=== PATIENT | male | born 1970 | race Caucasian/White ===

== ENCOUNTER 2021-01-07 16:13 | Inpatient (IN) | payer OTHER ==
[~2021-01-07] VITALS: Ht 188 cm; Wt 90.6 kg
[2021-01-07] MEDS ORDERED: GABA300 PO (16:36)
[2021-01-07] MEDS ORDERED: FOLI1 PO (16:37)
[2021-01-07] MEDS ORDERED: B-1100 M1 PO (16:37)
[2021-01-07] MEDS ORDERED: MULVITA PO (16:38)
[2021-01-07] MEDS ORDERED: MELATONIN5 M1 PO (16:39)
[2021-01-07] MEDS ORDERED: HYDPAM50 PO (16:40)
[2021-01-07] MEDS ORDERED: CLON1 PO (16:41)
[2021-01-07] MEDS ORDERED: METO25 PO (16:43)
[2021-01-07] MEDS ORDERED: PROM25 PO (16:43)
[2021-01-07] MEDS ORDERED: TRAZ50 PO (16:44)
[2021-01-07 18:39] LABS: BASOPHILS ABSOLUTE AUTO 0.03 K/mm3 (0.00-0.23); BASOPHILS PERCENT AUTO 1 % (0-2); EOSINOPHILS ABSOLUTE AUTO 0.05 K/mm3 (0.00-0.68); EOSINOPHILS PERCENT AUTO 1 % (0-6); Hemoglobin 10.5 g/dL (13.5-17.5); IMMATURE GRAN ABSOLUTE AUTO 0.01 K/mm3 (0.00-0.10); IMMATURE GRAN PERCENT AUTO 0 % (0-1); LYMPHOCYTES ABSOLUTE AUTO 1.17 K/mm3 (0.84-5.20); LYMPHOCYTES PERCENT AUTO 21 % (21-46); MONOCYTES ABSOLUTE AUTO 0.85 K/mm3 (0.16-1.47); MONOCYTES PERCENT AUTO 15 % (4-13); Mean Corpuscular HGB 29.9 pg (26.0-34.0); Mean Corpuscular HGB Conc 31.8 g/dL (31.5-36.5); Mean Corpuscular Volume 94 fL (80-100); Mean Platelet Volume 10.5 fL (9.1-12.4); NEUTROPHILS PERCENT AUTO 62 % (41-73); Platelet Count 186 K/mm3 (150-400); RDW Coefficient Variation 17.1 % (11.7-14.2); Red Blood Cell Count 3.51 M/mm3 (4.30-5.90); White Blood Cell Count 5.51 K/mm3 (4.00-11.30)
[2021-01-07 19:00] LABS: International Normalized Ratio 1.43; Prothrombin Time Results 14.7 Sec (9.7-11.5)
[2021-01-07 19:04] LABS: Alanine Aminotransfer (ALT/SGP 80 U/L (12-78); Albumin/Globulin Ratio 0.3 (0.8-1.8); Alk Phos 151 U/L (50-136); Anion Gap 4 mmol/L (6-16); Aspartate Aminotrans (AST/SGOT 125 U/L (12-37); Bilirubin, Total 1.8 mg/dL (0.1-1.0); Blood Urea Nitrogen 11 mg/dL (8-24); CO2, Blood 24 mmol/L (21-32); Calcium, Blood 8.9 mg/dL (8.5-10.1); Chloride, Blood 110 mmol/L (98-108); Creatinine, Blood 0.61 mg/dL (0.60-1.20); Ethanol (Alcohol), Blood, Med <3 mg/dL; Globulin, Blood 7.3 g/dL (2.2-4.0); Glomerular Filtration Rate >60 (60-); Glucose, Blood 100 mg/dL (70-99); Magnesium, Blood 1.6 mg/dL (1.6-2.4); Sodium, Blood 138 mmol/L (136-145); Total Protein, Blood 9.3 g/dL (6.4-8.2)
[2021-01-07 19:25] LABS: Acetaminophen, Random <2.0 ug/mL (10.0-30.0); Salicylate <1.7 mg/dL (2.8-20.0)
[2021-01-07] MEDS ORDERED: Inderal 20 mg T20 MG PO (20:46)
[2021-01-07 20:56] LABS: Influenza A, PCR NEGATIVE (NEGATIVE); Influenza B, PCR NEGATIVE (NEGATIVE); Resp Syncytial Virus, PCR NEGATIVE (NEGATIVE); SARS-Cov-2 (COVID-19) PCR, MMC NEGATIVE (NEGATIVE)
[2021-01-07 22:52] LABS: Source, Urine Clean Catch
[2021-01-07 22:57] LABS: Bilirubin, Urine Neg (Neg); Blood, Urine Neg (Neg); Glucose Qualitative, Urine Neg (Neg); Ketones, Urine Neg (Neg); Leukocyte Esterase, Urine Neg (Neg); Nitrite, Urine Neg (Neg); Protein, Urine Neg (Neg); Specific Gravity, Urine 1.015 (1.003-1.022); Urobilinogen, Urine NORM (Normal)
[2021-01-07 23:05] LABS: Appearance, Urine Clear (Clear); Color, Urine Yellow (P-Yellow)
[2021-01-07 23:08] LABS: U Amphetamine Screen DETECTED; U Barbituate Screen Not Detected; U Benzodiazapine Screen DETECTED; U Buprenorphine Screen Not Detected; U Cannabinoids Screen Not Detected; U Cocaine Screen Not Detected; U Methadone Screen Not Detected; U Methamphetamine Screen DETECTED; U Opiates Screen Not Detected; U Oxycodone Screen Not Detected; U Phencyclidine Screen Not Detected; U Propoxyphene Screen Not Detected
[2021-01-07 23:45] LABS: C DIFFICILE DNA POSITIVE (Negative)
--- NOTE | 2021-01-08 05:15 | NUR ---
PT TX UP FROM ED LAST NIGHT. ALERT TO SELF. ABLE TO MAKE NEEDS KNOWN. INCREASE IN AM TEMP SEEN IN VS. SINUS TACH ON TELE WITH HR 114. SPEECH IS MUMBLED AT TIMES INCOHERENT. PT IS IMPULSIVE. HAVE TO BE REMINDED TO USE CALL LIGHT. ON CONTACT PRECAUTION FOR C. DIFF. HE HAS HAD EPISODES OF BOTH CONTINENCE AND INCONTINENCE. CALM AND COOOPERATIVE WITH CARE. BED IN LOW POSITION, CALL LIGHT IN REACH. WILL CONTINUE TO MONITOR
[2021-01-08 05:52] LABS: BASOPHILS ABSOLUTE AUTO 0.02 K/mm3 (0.00-0.23); BASOPHILS PERCENT AUTO 0 % (0-2); EOSINOPHILS ABSOLUTE AUTO 0.05 K/mm3 (0.00-0.68); EOSINOPHILS PERCENT AUTO 1 % (0-6); Hematocrit 28.9 % (37.0-53.0); Hemoglobin 9.3 g/dL (13.5-17.5); IMMATURE GRAN ABSOLUTE AUTO 0.02 K/mm3 (0.00-0.10); IMMATURE GRAN PERCENT AUTO 0 % (0-1); LYMPHOCYTES ABSOLUTE AUTO 2.01 K/mm3 (0.84-5.20); LYMPHOCYTES PERCENT AUTO 28 % (21-46); MONOCYTES ABSOLUTE AUTO 1.07 K/mm3 (0.16-1.47); MONOCYTES PERCENT AUTO 15 % (4-13); Mean Corpuscular HGB 29.9 pg (26.0-34.0); Mean Corpuscular HGB Conc 32.2 g/dL (31.5-36.5); Mean Corpuscular Volume 93 fL (80-100); NEUTROPHILS ABSOLUTE AUTO 3.93 K/mm3 (1.96-9.15); NEUTROPHILS PERCENT AUTO 55 % (41-73); Platelet Count 213 K/mm3 (150-400); RDW Coefficient Variation 17.2 % (11.7-14.2); Red Blood Cell Count 3.11 M/mm3 (4.30-5.90)
[2021-01-08 06:19] LABS: Alanine Aminotransfer (ALT/SGP 64 U/L (12-78); Albumin, Blood 1.8 g/dL (3.4-5.0); Albumin/Globulin Ratio 0.3 (0.8-1.8); Alk Phos 122 U/L (50-136); Anion Gap 7 mmol/L (6-16); Aspartate Aminotrans (AST/SGOT 98 U/L (12-37); Bilirubin, Total 1.9 mg/dL (0.1-1.0); Blood Urea Nitrogen 11 mg/dL (8-24); CO2, Blood 24 mmol/L (21-32); Calcium, Blood 8.2 mg/dL (8.5-10.1); Chloride, Blood 107 mmol/L (98-108); Creatinine, Blood 0.58 mg/dL (0.60-1.20); Glomerular Filtration Rate >60 (60-); Glucose, Blood 91 mg/dL (70-99); Potassium, Blood 3.3 mmol/L (3.5-5.5); Sodium, Blood 138 mmol/L (136-145); Total Protein, Blood 7.8 g/dL (6.4-8.2)
--- NOTE | 2021-01-08 18:48 | NUR ---
PT IS ALERT,AGITATED,C/O SEVERE HEADACHE,NAUSEA AND VOMITING,MEDICATED PER EMAR.THE LIGHT BOTHERS HIM,AND JUMPED OUT OF BED COUPLE TIMES,SCREAMING,BAD TREMORS,PULLED TELE OUT.CALLED MD AND GOT ORDER FOR PT TO TRANSFER TO PCU.PT IN BED NOW,BED ALARM PUBLICATION EDITOR LIGHT IN REACH WILL CONTINUE TO MONITOR.
--- NOTE | 2021-01-08 20:39 | NUR ---
NURSE TO NURSE REPORT GIVEN TO SENA MCCOY ON PCU. PT TX TO PCU ONE
[2021-01-09 04:18] LABS: BASOPHILS ABSOLUTE AUTO 0.02 K/mm3 (0.00-0.23); BASOPHILS PERCENT AUTO 0 % (0-2); EOSINOPHILS ABSOLUTE AUTO 0.08 K/mm3 (0.00-0.68); EOSINOPHILS PERCENT AUTO 2 % (0-6); Hematocrit 29.1 % (37.0-53.0); Hemoglobin 9.3 g/dL (13.5-17.5); IMMATURE GRAN PERCENT AUTO 0 % (0-1); LYMPHOCYTES ABSOLUTE AUTO 1.13 K/mm3 (0.84-5.20); LYMPHOCYTES PERCENT AUTO 23 % (21-46); MONOCYTES ABSOLUTE AUTO 0.71 K/mm3 (0.16-1.47); MONOCYTES PERCENT AUTO 15 % (4-13); Mean Corpuscular HGB 30.1 pg (26.0-34.0); Mean Corpuscular Volume 94 fL (80-100); Mean Platelet Volume 10.4 fL (9.1-12.4); NEUTROPHILS ABSOLUTE AUTO 2.92 K/mm3 (1.96-9.15); NEUTROPHILS PERCENT AUTO 60 % (41-73); Platelet Count 177 K/mm3 (150-400); RDW Coefficient Variation 16.9 % (11.7-14.2); Red Blood Cell Count 3.09 M/mm3 (4.30-5.90); White Blood Cell Count 4.86 K/mm3 (4.00-11.30)
[2021-01-09 04:45] LABS: Anion Gap 7 mmol/L (6-16); Blood Urea Nitrogen 9 mg/dL (8-24); Bun/Creatinine Ratio 16.8 (12.0-20.0); CO2, Blood 24 mmol/L (21-32); Calcium, Blood 8.1 mg/dL (8.5-10.1); Chloride, Blood 107 mmol/L (98-108); Creatinine, Blood 0.54 mg/dL (0.60-1.20); Glomerular Filtration Rate >60 (60-); Glucose, Blood 148 mg/dL (70-99); Potassium, Blood 3.4 mmol/L (3.5-5.5); Sodium, Blood 138 mmol/L (136-145)
--- NOTE | 2021-01-09 05:47 | NUR ---
SHIFT SUMMARY PT IS ALERT. PT HAS BEEN PAINFUL AND AXIOUS T/O THE NIGHT AND HAS BEEN MEDICATED PER EMAR. PT'S CIWAS HAVE RANGED FROM 10 AND 17 AND HAS BEEN MEDICATED PER EMAR. VITAL SIGNS HAVE BEEN STABLE AND IS ON ROOM AIR WITH SATS ABOVE 92%. PT DENIES CHEST PAIN OR SOB. PT HAS HAD ONE SMALL STOOL T/O HIS STAY IN THE UNIT. PT REFUSED TAKING LACTULOSE WHEN SCHEDUALED BECAUSE "MAKES HIM POOP EVERYWHERE." PT IS ABLE TO USE URINAL AT BEDSIDE. CALL LIGHT IS WITHIN REACH.
--- NOTE | 2021-01-09 17:40 | NUR ---
SHIFT SUMMARY: PATIENT STABLE T/O SHIFT. NO ACUTE EVENTS. CIWA 7-13 WITH AN 11 SCORE AT 1740. PATIENT TREATED FOR PAIN WITH 25 MCG FENTANYL AND IS RESTING IN BED. PATIENT IS VERY HUNGRY AND WILL REQUEST PUDDING CUPS. HE IS ON A FULL LIQUID DIET. AT DINNER HE STATED "SOMEONE ATE ALL MY FOOD." THIS RN REPLIED, "YES, YOU DID. WAS IT GOOD?" HE CLOSED HIS EYES AND WENT BACK TO RESTING. AGREEABLE TO FOLLOWING DIRECTIONS AND COOPERATES WITH MOVEMENTS NEEDED FOR ASSESSMENTS. PATIENT HAS NOT LEFT BED THIS SHIFT. TREATED WITH ATIVAN ONCE THIS AFTERNOON FOR WORSENING CIWA SCORE (13) WITH GOOD RESULTS. WILL REPORT TO NOC RN.
--- NOTE | 2021-01-09 20:58 | NUR ---
PT REFUSED TO TAKE FULL DOSE OF LACTULOSE. PT WAS EDUCATED ON IMPORTANCE OF MEDICATION. ONLY TOOK ONE SIP.
--- NOTE | 2021-01-09 22:06 | NUR ---
PT IS ALERT. HE WOKE UP VERY IRRITATED WITH STAFF, IRRITATED THAT HE HAD A BM ALL OVER. PT WANTED TO GO SIT IN SHOWER BUT WE ADVISED HIM THAT IT WAS NOT SAFE FOR HIM AT THE MOMENT. PT WAS CLEANED UP AND MEDICATED PER EMAR. CALLED LIGHT IS WITHIN REACH.
--- NOTE | 2021-01-10 | NUR ---
PT YELLING OUT "IM GOING TO PUKE ALL MY BLOOD OUT." "MAKE ME A DNR."
--- NOTE | 2021-01-10 02:24 | NUR ---
PT WAS VERY UPSET GOT OUT OF BED AND WENT TO THE SHOWER. HE DID NOT WAIT TO TAKE TELE BOX OFF OR WAIT FOR IV COVER UP. PT WAS VERY AGITATED AND FOUL LANGUAGE TOWARDS STAFF. HE WANTED TO BE LEFT ALONE. WAS WATCHED BY STAFF UNTIL HE WENT BACK TO BED. WAS THEN VERY AGITATED THAT HE WANTED MORE PUDDING BUT HAS BEEN REPORTING NAUSEA AND VOMITING FREQUANTLY. CALL LIGHT IS WITHIN REACH.
--- NOTE | 2021-01-10 06:23 | NUR ---
SHIFT SUMMARY PT IS ALERT AND ORIENTED WITH AGITATION. VITLAS ARE STABLE AND IS ON ROOM AIR WITH SATS ABOVE 92%. PT REPORTS PAIN AND ANXIETY. PT WAS VERY IRRITABLE AND CALLING OUT WITH OBSCENE LANGUAGE. PT REFUSED TO FOLLOW DIRECTIONS SOMETIMES. PT WAS ALSO ASKING FOR FOOD MOST OF THE NIGHT AND WAS VERY NAUSEOUS AND VOMITING WHAT HE ATE. CALL LIGHT IS WITHIN REACH.
--- NOTE | 2021-01-10 15:10 | NUR ---
TRANSFER NOTE PT ALERT, ORIENTED x3; CIWA 7-10; MEDICATED PER EMAR. PT RESTING IN BED DURING SHIFT, APPEARS TO BE SLEEPING FOR MAJORITY OF SHIFT. PT REPORTS PAIN TO MOUTH/JAW AND BACK, MEDICATED PER EMAR. PT DEIENS SOB, NAUSE AND DIZZINESS DURING SHIFT. PT RECEIVING PO VANCO FOR C.DIFF. VSS. NO OTHER ACUTE CHANGES NOTED. REPORT GIVEN TO RN ASSUMING CARE OF PATIENT. PT TRANSFERED TO ROOM 331.
--- NOTE | 2021-01-10 16:42 | NUR ---
SHIFT SUMMARY TRANSFERED FROM PCU AT 1415. SETTLED INTO ROOM. PATIENT DENIES PAIN, AND SHORTNESS OF BREATH. PATIENT REPORTS NAUSEA AND REQUESTED BLAND FOOD INSTEAD OF MEDICATIONS. PATIENT DOES REPORT ANXIETY, MEDICATED X1 FOR THAT. PATIENT SLEPT MOST OF THE TIME SINCE BEING ON THIS FLOOR. PATIENT IS A SBA TO THE BATHROOM. PATIENT IS TOLERATING THE FULL LIQUID DIET WELL. CIWA AT 1600 WAS 6. PATIENT IS PLEASANT AND COOPERATIVE WITH CARE.
--- NOTE | 2021-01-10 18:23 | NUR ---
CIWA CIWA 8, MEDICATED PER EMAR.
--- NOTE | 2021-01-11 04:18 | NUR ---
SHIFT SUMMARY ADMITTED FOR ETOH ENCEPHALOPATHY. FULL COODE. CONTACT PRECAUTIONS FOR C. DIFF POSITIVE. PLAN IS TO DC TODAY TO [facility]. POWERGLIDE IN [place]. PO VANCO SCHEDULED. REFUSED LACTULOSE THIS SHIFT. Q4 CIWA EVALS. MEDICATED FOR WITHDRAWALS AND PAIN PER EMAR. PERIODS OF CONFUSION.
[2021-01-11] MEDS ORDERED: FAMO20 PO (09:28)
[2021-01-11] MEDS ORDERED: VANCOMYCIN PO (09:30)
--- NOTE | 2021-01-11 18:36 | NUR ---
PT IS A/OX2. COOPERATIVE THE PT IS UP IND IN HIS ROOM. THE PT IS SOMEWHAT UNSTEADY ON HIS FEET BUT HAS BEEN ABLE SO FAR TO KEEP BALANCE. THE PT DOES NOT USE THE CALL LIGHT FOR ASSISTANCE TO THE BATHROOM. THE PT TOOK 1 DOSE OF LACTULOSE TODAY OTHERWIS DECLINED TO TAKE IT THE PT REPORTS THAT HE HAS BEEN HAVEING SEVERAL LOOSE BM'S T/O THE DAY. PT WAS TO BE DISCHARGED TO [facility] TODAY HOWEVER [facility] DECLINED TO RECIEVE THE PT. THE PT WAS GIVEN LIBRIUM X1 TODAY ONLY, CALL LIGHT IN REACH WILL CONTINUE TO MONITOR AND ASSESS FOR CHANGES
--- NOTE | 2021-01-11 21:29 | NUR ---
ORIENT HAS ARRIVED AND PICKED [facility] CHARGE INFORMED.
--- NOTE | 2021-01-12 04:26 | NUR ---
SHIFT SUMMARY ADMITTED FOR ETOH HEPATIC ENCEPHALOPATHY. AOX2 WITH SLURRED SPEECH AND INCREASED CONFUSION. CIWA SCORE 0400 WAS A 9. NEW ORDERS PER EMAR FOR PAIN/FEVER AND ANXIETY. BED ALARM SET D/T IMPULSIVE AND UNCOOPERATIVE BEHAVIORS. CONTACT PRECAUTION FOR C.DIFF. UNSTEADY GAIT AND EASILY AGITATED WITH STAFF WHEN HELP IS OFFERED. PT. C/O INSOMNIA AND SLEPT POORLY THIS SHIFT.
[2021-01-12 08:22] LABS: BASOPHILS ABSOLUTE AUTO 0.03 K/mm3 (0.00-0.23); BASOPHILS PERCENT AUTO 1 % (0-2); EOSINOPHILS ABSOLUTE AUTO 0.17 K/mm3 (0.00-0.68); EOSINOPHILS PERCENT AUTO 4 % (0-6); Hematocrit 32.4 % (37.0-53.0); Hemoglobin 10.3 g/dL (13.5-17.5); IMMATURE GRAN ABSOLUTE AUTO 0.01 K/mm3 (0.00-0.10); IMMATURE GRAN PERCENT AUTO 0 % (0-1); LYMPHOCYTES ABSOLUTE AUTO 1.49 K/mm3 (0.84-5.20); LYMPHOCYTES PERCENT AUTO 33 % (21-46); MONOCYTES ABSOLUTE AUTO 0.84 K/mm3 (0.16-1.47); MONOCYTES PERCENT AUTO 18 % (4-13); Mean Corpuscular HGB 29.6 pg (26.0-34.0); Mean Corpuscular HGB Conc 31.8 g/dL (31.5-36.5); Mean Corpuscular Volume 93 fL (80-100); Mean Platelet Volume 10.5 fL (9.1-12.4); NEUTROPHILS ABSOLUTE AUTO 2.03 K/mm3 (1.96-9.15); NEUTROPHILS PERCENT AUTO 44 % (41-73); Platelet Count 194 K/mm3 (150-400); RDW Coefficient Variation 16.9 % (11.7-14.2); RDW Standard Deviation 58.5 fL (35.1-46.3); Red Blood Cell Count 3.48 M/mm3 (4.30-5.90); White Blood Cell Count 4.57 K/mm3 (4.00-11.30)
[2021-01-12 08:42] LABS: Albumin, Blood 1.9 g/dL (3.4-5.0); Anion Gap 5 mmol/L (6-16); Blood Urea Nitrogen 14 mg/dL (8-24); Bun/Creatinine Ratio 21.9 (12.0-20.0); CO2, Blood 27 mmol/L (21-32); Calcium, Blood 8.5 mg/dL (8.5-10.1); Chloride, Blood 108 mmol/L (98-108); Creatinine, Blood 0.64 mg/dL (0.60-1.20); Glomerular Filtration Rate >60 (60-); Glucose, Blood 86 mg/dL (70-99); Magnesium, Blood 1.8 mg/dL (1.6-2.4); Phosphorus, Blood 5.4 mg/dL (2.5-4.9); Potassium, Blood 4.3 mmol/L (3.5-5.5); Sodium, Blood 140 mmol/L (136-145)
--- NOTE | 2021-01-12 17:48 | NUR ---
PT IS ALERT ORIENTED TO SELF AND SURROUNDINGS. PT HAS BEEN SLEEPING FOR MOST OF THE DAY. THE PT CONTINUES TO HAVE VISUAL TREMORS. THE PT CONTINUES TO REPORT THAT HE SEE'S CATS IN HIS ROOM PERIODICALY. THE PT WAS AGREEABLE TODAY TO TAKE SOME OF HIS LACTULOSE DOSES. PT REPORTS THAT HE HAS HAD A BM BUT IT WAS NOT WITNESSED. THE PT IS VERY UNSTEADY ON HIS FEET. PT APPEARS TO BE BREATHING EASILY ON RA AT THIS TIME. CALL LIGHT IN REACH. WILL CONTINUE TO MONITOR AND ASSESS FOR CHANGES
--- NOTE | 2021-01-13 03:48 | NUR ---
PATIENT IS ALERT AND ORIENTED WITH SOME FORGETFULNESS. C/O SOME PAIN TO HIS RLQ WHICH HE STATES HAS BEEN AN ONGOING PAIN FOR A WHILE. MEDICATED WITH IV TORODOL WITH EFFECTIVENESS. PATIENT SEEMS TO HAVE THE MUCHIES AND REQUESTS SNACKS CONSTANTLY WHILE AWAKE. HIS GAIT IS VERY UNSTEADY BUT LIKELY HIS BASELINE. DBP ELEVATED HOWEVER ALL OTHER VITALS APPEAR STABLE. PATIENT IS COOPERATIVE AND PLEASANT WITH STAFF HOWEVER APPEARS TO NEED FREQUENT DIRECTION/REDIRECTION FROM STAFF. CIWA'S HAVE SEEMED STABLE. PATIENT IS CURRENTLY ASLEEP IN ROOM WITH CALL LIGHT WITHIN REACH.
--- NOTE | 2021-01-13 10:00 | NUR ---
PT PLEASANT, FLAT EFFECT. A/O X2-3, FORGETFUL. H/R REG, NO MURMER NOTED. NO TELE. LUNGS CLEAR, RESP EASY, UNLABORED. ON R/A. NOT APPEARING IN DISTRESS. BT X4 LAST BM NOT KNOWN BY PT. LOOSE STOOL, LACTULOSE. C-DIFF. VOIDS URINAL AND SBA TO BATHROOM. WOBBLEY AMBULATION. EYES 5/5 = REACTIVE. JAUNDICED SKIN. HANDS LIGHTLY SHAKEY. FLAT EFFECT. BED IN LOW POSITION, CALLLITE IN REACH, BED ALARM ON FOR SAFETY.
--- NOTE | 2021-01-13 14:40 | NUR ---
DAUGHTER OF RHONA CALLED, MARITZA CURRY. PT OKAYED TALK TO HER. SHE STATES TRANSPORTS PT TO APPTS AND HOME. CAN CALL HER [phone]. REQUESTS SHE TAKE HIM TO [facility] WHEN CAN. STATES DID ATTEMPT SUICIDE WITH RIFLE, NORMALLY IS SOME CONFUSED, AND UNSTEADY WALKING, BUT DOES GET AROUND WITHOUT FALLING.
--- NOTE | 2021-01-13 17:58 | NUR ---
PT DOING OKAY TODAY. DID TAKE SHOWER. 1 ASST WITH GAITE BELT AND FWW. 4 BMS TODAY. HELD 1700 LACTULOSE. PT CONTINUES TO BE FLAT EFFECT. PRESENTLY IN BED EATING DINNER. BED IN LOW POSITION, CALL LITE IN REACH, BED ALARM ON FOR SAFETY
--- NOTE | 2021-01-14 04:39 | NUR ---
PATIENT WAS ALERT AND ORIENTED X3. COMPLAINED OF BEING ANIXIOUS AROUND MID NIGHT AND HAD CIWA SCORE OF 5, ADIVAN WAS GIVEN THEN PATIENT WENT TO BED. PATIENT DENIES ANY PAIN OR SOB AND VIATL SIGNS WHERE WNL
--- NOTE | 2021-01-14 10:00 | NUR ---
PT DISAGREEABLE TODAY. REFUSING MEDS. STATES EVERYTHING GIVES HIM DIARRHEA. WOULD RATHER THAN HAVE MORE DIARRHEA. EXPLAINED NEEDS LACTULOSE FOR CLEARING THE AMONIA WHICH RELATES TO CONFUSION. AGREED TO TAKE VANCO. WILL FOLLOW. H/R REG, NO MURMER NOTED. NO TELE. LUGS CLEAR, REAP EASY, UNLABORED. ON RA. BT X4 HYPERACTIVE, LAST BM THIS AM. STATES MUCH OF LAST NITE. VOIDS BATHROOM. 1 MOD ASST FWW. BED IN LOW POSITION, CALL LITE IN REACH, BED ALARM ON FOR SAFETY
--- NOTE | 2021-01-14 18:42 | NUR ---
PT SOME IRRITABLE TODAY. REFUSED AM MEDS. WAS ABLE TO TAKE SOME LATER IN AM. REFUSED LACTULOSE T/O DAY. FINALLY TOOK AT SAÚL DOSE. HAS CALLED GIRLFRIEND TODAY. STATES 2 BM TODAY. NO OTHER CONCERNS NOTED. BED IN LOW POSITION, CALL LITE IN REACH, BED ALARM ON FOR SAFETY
[2021-01-15 05:37] LABS: Alanine Aminotransfer (ALT/SGP 95 U/L (12-78); Albumin, Blood 1.9 g/dL (3.4-5.0); Albumin/Globulin Ratio 0.3 (0.8-1.8); Alk Phos 115 U/L (50-136); Anion Gap 5 mmol/L (6-16); Aspartate Aminotrans (AST/SGOT 131 U/L (12-37); Bilirubin, Total 0.7 mg/dL (0.1-1.0); Blood Urea Nitrogen 19 mg/dL (8-24); Bun/Creatinine Ratio 32.3 (12.0-20.0); CO2, Blood 24 mmol/L (21-32); Calcium, Blood 8.7 mg/dL (8.5-10.1); Chloride, Blood 112 mmol/L (98-108); Creatinine, Blood 0.59 mg/dL (0.60-1.20); Globulin, Blood 6.7 g/dL (2.2-4.0); Glomerular Filtration Rate >60 (60-); Glucose, Blood 77 mg/dL (70-99); Magnesium, Blood 1.5 mg/dL (1.6-2.4); Potassium, Blood 3.8 mmol/L (3.5-5.5); Sodium, Blood 141 mmol/L (136-145); Total Protein, Blood 8.6 g/dL (6.4-8.2)
--- NOTE | 2021-01-15 05:49 | NUR ---
SHIFT SUMMARY PATIENT ALERT AND ORIENTED X3. MEDICATED PER EMAR FOR PAIN. NO COMPLAINTS OF SHORTNESS OF BREATH. HAD A BOUT OF AGITATION RESULTING FROM FRUSTRATION OF LOOSE STOOLS. NO OTHER ISSUES NOTED. CALL LIGHT WITHIN REACH. REPORT GIVEN TO ONCOMING RN.
--- NOTE | 2021-01-15 18:53 | NUR ---
Alert and oriented x2-3. Continue on CIWA assessment, score 4-6 ,no medication given. Vital signs are stable. Denies any pain. headache, dizziness or shortness of breath. No acute event occurs during shift.Continue to monitor.
[2021-01-16 05:18] LABS: BASOPHILS ABSOLUTE AUTO 0.04 K/mm3 (0.00-0.23); BASOPHILS PERCENT AUTO 1 % (0-2); EOSINOPHILS ABSOLUTE AUTO 0.09 K/mm3 (0.00-0.68); EOSINOPHILS PERCENT AUTO 2 % (0-6); Hematocrit 33.8 % (37.0-53.0); Hemoglobin 10.7 g/dL (13.5-17.5); IMMATURE GRAN ABSOLUTE AUTO 0.01 K/mm3 (0.00-0.10); IMMATURE GRAN PERCENT AUTO 0 % (0-1); LYMPHOCYTES PERCENT AUTO 34 % (21-46); MONOCYTES ABSOLUTE AUTO 0.95 K/mm3 (0.16-1.47); MONOCYTES PERCENT AUTO 16 % (4-13); Mean Corpuscular HGB 29.3 pg (26.0-34.0); Mean Corpuscular HGB Conc 31.7 g/dL (31.5-36.5); Mean Corpuscular Volume 93 fL (80-100); Mean Platelet Volume 10.8 fL (9.1-12.4); NEUTROPHILS ABSOLUTE AUTO 2.85 K/mm3 (1.96-9.15); NEUTROPHILS PERCENT AUTO 48 % (41-73); Platelet Count 192 K/mm3 (150-400); RDW Coefficient Variation 16.6 % (11.7-14.2); RDW Standard Deviation 56.1 fL (35.1-46.3); Red Blood Cell Count 3.65 M/mm3 (4.30-5.90); White Blood Cell Count 5.94 K/mm3 (4.00-11.30)
[2021-01-16 06:14] LABS: Alanine Aminotransfer (ALT/SGP 104 U/L (12-78); Albumin, Blood 1.9 g/dL (3.4-5.0); Albumin/Globulin Ratio 0.3 (0.8-1.8); Alk Phos 120 U/L (50-136); Anion Gap 9 mmol/L (6-16); Aspartate Aminotrans (AST/SGOT 143 U/L (12-37); Bilirubin, Total 0.7 mg/dL (0.1-1.0); Blood Urea Nitrogen 17 mg/dL (8-24); Bun/Creatinine Ratio 27.1 (12.0-20.0); CO2, Blood 21 mmol/L (21-32); Calcium, Blood 8.6 mg/dL (8.5-10.1); Chloride, Blood 110 mmol/L (98-108); Creatinine, Blood 0.63 mg/dL (0.60-1.20); Globulin, Blood 6.7 g/dL (2.2-4.0); Glomerular Filtration Rate >60 (60-); Glucose, Blood 87 mg/dL (70-99); Magnesium, Blood 1.6 mg/dL (1.6-2.4); Potassium, Blood 4.2 mmol/L (3.5-5.5); Sodium, Blood 140 mmol/L (136-145); Total Protein, Blood 8.6 g/dL (6.4-8.2)
--- NOTE | 2021-01-16 06:15 | NUR ---
SHIFT SUMMARY PATIENT ALERT AND ORIENTED. HAD NO COMPLAINTS OF PAIN OR SHORTNESS OF BREATH. NO ACUTE ISSUES NOTED OVERNIGHT. CALL LIGHT WITHIN REACH. REPORT GIVEN TO ONCOMING RN.
[2021-01-16] MEDS ORDERED: Acetaminophen325 M1 PO (12:18)
[2021-01-16] MEDS ORDERED: MASOPHEN325 M4 PO (12:28)
[2021-01-16] MEDS ORDERED: Enulose10 GM/15 M PO (12:29)
[2021-01-16] MEDS ORDERED: MAGNESIUM OXID500 MG PO (12:30)
[2021-01-16] MEDS ORDERED: NICO21TP TOP (12:31)
--- NOTE | 2021-01-16 12:51 | NUR ---
SPOKE WITH DR DARLING TO CLARIFY DUPLICATE ORDER FOR ORAL VANCO AT D/C. PATIENT HAS RECEIVED 32 OF 40 DOSES AND WILL NEED 8 MORE DOSES. V.O FROM DR. DARLING TO D/C PATIENT ON VANCOMYCIN 250MG PO Q6H X8 DOSES. MEDICATIONS CALLED INTO [facility].
--- NOTE | 2021-01-16 14:00 | NUR ---
Alert and oriented x3 ,anxious and able to make needs known. Denies any pain. Continue on lactulose . Vancomycin was given ,it was effective. One person assist with ADLS. Vital signs are stable. Patient is discharged to [facility] in a stable condition.
== END 2021-01-16 13:17 | disposition home or self-care (01) | DRG 442 ==
LOC: ER 16:13 → MEDS 16:14 → PCU 01-08 13:24 → MEDS 01-10 14:07 → ENPENDDIS 01-11 17:55 → MEDS 01-16 13:17
PROVIDERS: Emergency Medicine; Internal Medicine; ADMIT Internal Medicine
DX: K72.00 Acute and subacute hepatic failure without coma (principal); F10.239 Alcohol dependence with withdrawal, unspecified; A04.72 Enterocolitis due to Clostridium difficile, not specified as recurrent; Z20.822 Contact with and (suspected) exposure to COVID-19; E87.6 Hypokalemia; E86.0 Dehydration; E88.09 Other disorders of plasma-protein metabolism, not elsewhere classified; K70.10 Alcoholic hepatitis without ascites; F41.9 Anxiety disorder, unspecified; I10 Essential (primary) hypertension; Z79.899 Other long term (current) drug therapy; Z88.8 Allergy status to other drugs, medicaments and biological substances
CPT/HCPCS: 0241U; 36415; 80048; 80053; 80069; 81003; 82140; 83605; 83690; 83735; 84145; 85025; 85610; 87324; 87493; 97110; 97116; 97162; 97165; 99285; A9270; C1751; G0480; J1650; J1885; J2060; J2405; J3010; J3411; J3475; J7030; J7042

== ENCOUNTER 2021-01-23 16:18 | Inpatient (IN) | payer OTHER ==
[~2021-01-23] VITALS: Ht 188 cm; Wt 92.4 kg
[~2021-01-23 16:18] MED LIST: Acetaminophen325 M1 PO; B-1100 M1 PO; CLON1 PO; Enulose10 GM/15 M PO; FAMO20 PO; FOLI1 PO; GABA300 PO; HYDPAM50 PO; Inderal 20 mg T20 MG PO; MAGNESIUM OXID500 MG PO; MASOPHEN325 M4 PO; MELATONIN5 M1 PO; METO25 PO; MULVITA PO; NICO21TP TOP; PROM25 PO; TRAZ50 PO; VANCOMYCIN PO
[2021-01-23 17:20] LABS: BASOPHILS ABSOLUTE AUTO 0.04 K/mm3 (0.00-0.23); BASOPHILS PERCENT AUTO 1 % (0-2); EOSINOPHILS ABSOLUTE AUTO 0.07 K/mm3 (0.00-0.68); EOSINOPHILS PERCENT AUTO 2 % (0-6); Hematocrit 39.6 % (37.0-53.0); Hemoglobin 12.3 g/dL (13.5-17.5); IMMATURE GRAN ABSOLUTE AUTO 0.01 K/mm3 (0.00-0.10); IMMATURE GRAN PERCENT AUTO 0 % (0-1); LYMPHOCYTES ABSOLUTE AUTO 1.38 K/mm3 (0.84-5.20); LYMPHOCYTES PERCENT AUTO 31 % (21-46); MONOCYTES ABSOLUTE AUTO 0.64 K/mm3 (0.16-1.47); MONOCYTES PERCENT AUTO 15 % (4-13); Mean Corpuscular HGB 28.6 pg (26.0-34.0); Mean Corpuscular HGB Conc 31.1 g/dL (31.5-36.5); Mean Corpuscular Volume 92 fL (80-100); NEUTROPHILS ABSOLUTE AUTO 2.27 K/mm3 (1.96-9.15); NEUTROPHILS PERCENT AUTO 52 % (41-73); Platelet Count 175 K/mm3 (150-400); RDW Coefficient Variation 16.8 % (11.7-14.2); White Blood Cell Count 4.41 K/mm3 (4.00-11.30)
[2021-01-23 17:41] LABS: Alanine Aminotransfer (ALT/SGP 134 U/L (12-78); Albumin, Blood 2.3 g/dL (3.4-5.0); Albumin/Globulin Ratio 0.3 (0.8-1.8); Alk Phos 133 U/L (50-136); Anion Gap 5 mmol/L (6-16); Aspartate Aminotrans (AST/SGOT 155 U/L (12-37); Bilirubin, Total 0.8 mg/dL (0.1-1.0); Blood Urea Nitrogen 15 mg/dL (8-24); Bun/Creatinine Ratio 25.7 (12.0-20.0); CO2, Blood 25 mmol/L (21-32); Calcium, Blood 9.1 mg/dL (8.5-10.1); Chloride, Blood 110 mmol/L (98-108); Creatinine, Blood 0.58 mg/dL (0.60-1.20); Globulin, Blood 7.1 g/dL (2.2-4.0); Glomerular Filtration Rate >60 (60-); Glucose, Blood 89 mg/dL (70-99); Potassium, Blood 4.6 mmol/L (3.5-5.5); Sodium, Blood 140 mmol/L (136-145); Total Protein, Blood 9.4 g/dL (6.4-8.2)
[2021-01-23 23:01] LABS: Ethanol (Alcohol), Blood, Med <3 mg/dL
[2021-01-23 23:33] LABS: Hematocrit 31.9 % (37.0-53.0); Hemoglobin 10.3 g/dL (13.5-17.5)
[2021-01-24 05:39] LABS: BASOPHILS ABSOLUTE AUTO 0.03 K/mm3 (0.00-0.23); BASOPHILS PERCENT AUTO 1 % (0-2); EOSINOPHILS PERCENT AUTO 2 % (0-6); Hematocrit 31.6 % (37.0-53.0); Hemoglobin 10.1 g/dL (13.5-17.5); IMMATURE GRAN ABSOLUTE AUTO 0.01 K/mm3 (0.00-0.10); IMMATURE GRAN PERCENT AUTO 0 % (0-1); LYMPHOCYTES PERCENT AUTO 29 % (21-46); MONOCYTES ABSOLUTE AUTO 0.74 K/mm3 (0.16-1.47); MONOCYTES PERCENT AUTO 13 % (4-13); Mean Corpuscular HGB 28.8 pg (26.0-34.0); Mean Corpuscular Volume 90 fL (80-100); Mean Platelet Volume 11.1 fL (9.1-12.4); NEUTROPHILS ABSOLUTE AUTO 3.05 K/mm3 (1.96-9.15); NEUTROPHILS PERCENT AUTO 55 % (41-73); Platelet Count 212 K/mm3 (150-400); RDW Coefficient Variation 16.6 % (11.7-14.2); RDW Standard Deviation 54.9 fL (35.1-46.3); Red Blood Cell Count 3.51 M/mm3 (4.30-5.90); White Blood Cell Count 5.53 K/mm3 (4.00-11.30)
[2021-01-24 06:24] LABS: Alanine Aminotransfer (ALT/SGP 108 U/L (12-78); Albumin, Blood 1.9 g/dL (3.4-5.0); Albumin/Globulin Ratio 0.3 (0.8-1.8); Alk Phos 104 U/L (50-136); Anion Gap 6 mmol/L (6-16); Aspartate Aminotrans (AST/SGOT 116 U/L (12-37); Bilirubin, Total 0.9 mg/dL (0.1-1.0); Blood Urea Nitrogen 14 mg/dL (8-24); CO2, Blood 25 mmol/L (21-32); Calcium, Blood 8.5 mg/dL (8.5-10.1); Chloride, Blood 109 mmol/L (98-108); Creatinine, Blood 0.64 mg/dL (0.60-1.20); Globulin, Blood 5.7 g/dL (2.2-4.0); Glomerular Filtration Rate >60 (60-); Glucose, Blood 83 mg/dL (70-99); Potassium, Blood 3.9 mmol/L (3.5-5.5); Sodium, Blood 140 mmol/L (136-145); Total Protein, Blood 7.6 g/dL (6.4-8.2)
[2021-01-24 08:55] LABS: Influenza A, PCR NEGATIVE (NEGATIVE); Influenza B, PCR NEGATIVE (NEGATIVE); Resp Syncytial Virus, PCR NEGATIVE (NEGATIVE); SARS-Cov-2 (COVID-19) PCR, MMC NEGATIVE (NEGATIVE)
[2021-01-24 16:32] LABS: Hematocrit 36.7 % (37.0-53.0); Hemoglobin 11.6 g/dL (13.5-17.5)
--- NOTE | 2021-01-24 16:45 | NUR ---
SHIFT SUMMARY PATIENT IS ALERT AND ORIENTED X4. PATIENT IS AN ADMIT FROM THE ED AROUND 1430. PATIENT HAS BEEN RESTING MOST OF SHIFT. RECEIVING SCHEDULED Q2 FENTANYL FOR PAIN. PATIENT HAS HAD NO COMPLAINTS OF NAUSEA AND VOMITTING OR SOB THIS SHIFT. NO ACUTE EVENTS THIS SHIFT. CALL LIGHT IN PLACE. WILL MONITOR UNTIL END OF SHIFT.
[2021-01-24 16:56] LABS: Percent Saturation 50.1 % (20.0-50.0)
--- NOTE | 2021-01-24 18:27 | NUR ---
01/24/21 1827 LEIDY VICENTE History, Chart, Medications and Allergies reviewed before start of procedure. Patient confirms NPO status and agrees with scheduled surgery. 3-LEAD EKG REVIEWED WITH PHYSICIAN PRIOR TO START OF PROCEDURE. MONITOR INTACT WITH CONTINUOUS PULSE OXIMETRY AND INTERMITTENT BP. PATIENT DETERMINED TO BE ASA APPROPRIATE FOR PROPOFOL SEDATION PRIOR TO START OF PROCEDURE BY DR. OLIVARES. 02 VIA POM.
[2021-01-24 22:17] LABS: Hematocrit 35.3 % (37.0-53.0); Hemoglobin 11.2 g/dL (13.5-17.5)
[2021-01-25 04:23] LABS: BASOPHILS ABSOLUTE AUTO 0.02 K/mm3 (0.00-0.23); BASOPHILS PERCENT AUTO 1 % (0-2); EOSINOPHILS ABSOLUTE AUTO 0.01 K/mm3 (0.00-0.68); EOSINOPHILS PERCENT AUTO 0 % (0-6); Hematocrit 33.4 % (37.0-53.0); Hemoglobin 10.7 g/dL (13.5-17.5); Mean Corpuscular HGB 28.3 pg (26.0-34.0); Mean Corpuscular Volume 88 fL (80-100); Mean Platelet Volume 11.3 fL (9.1-12.4); Platelet Count 175 K/mm3 (150-400); RDW Coefficient Variation 16.5 % (11.7-14.2); RDW Standard Deviation 54.1 fL (35.1-46.3); Red Blood Cell Count 3.78 M/mm3 (4.30-5.90); White Blood Cell Count 4.03 K/mm3 (4.00-11.30)
[2021-01-25 04:25] LABS: IMMATURE GRAN ABSOLUTE AUTO 0.02 K/mm3 (0.00-0.10); IMMATURE GRAN PERCENT AUTO 1 % (0-1); LYMPHOCYTES PERCENT AUTO 27 % (21-46); MONOCYTES ABSOLUTE AUTO 0.76 K/mm3 (0.16-1.47); MONOCYTES PERCENT AUTO 19 % (4-13); NEUTROPHILS ABSOLUTE AUTO 2.12 K/mm3 (1.96-9.15); NEUTROPHILS PERCENT AUTO 53 % (41-73)
--- NOTE | 2021-01-25 04:59 | NUR ---
A/OX4. EGD DONE 01/24 W/ NO ACUTE BLEEDING FOUND. WANTED TO LEAVE AMA, BUT WAS TALKED INTO STAYING. Q2 FENTANYL FOR CHRONIC PAIN - CALLS FREQUENTLY FOR THE PAIN MED. UP WITH 1 PA TO BR AND FELT HE HAD WAS HAVING A SYNCOPAL EVENT. HE SAFELY W/ 1 PA MADE IT BACK TO BED. THE BED IS IN THE LOWEST POSITION, BED ALARM SET, AND CALL LIGHT WITHIN REACH.
[2021-01-25 05:07] LABS: Alanine Aminotransfer (ALT/SGP 111 U/L (12-78); Albumin, Blood 1.9 g/dL (3.4-5.0); Albumin/Globulin Ratio 0.3 (0.8-1.8); Alk Phos 108 U/L (50-136); Anion Gap 7 mmol/L (6-16); Aspartate Aminotrans (AST/SGOT 121 U/L (12-37); Bilirubin, Total 0.9 mg/dL (0.1-1.0); Blood Urea Nitrogen 13 mg/dL (8-24); Bun/Creatinine Ratio 17.7 (12.0-20.0); CO2, Blood 27 mmol/L (21-32); Calcium, Blood 8.2 mg/dL (8.5-10.1); Chloride, Blood 101 mmol/L (98-108); Creatinine, Blood 0.73 mg/dL (0.60-1.20); Globulin, Blood 6.4 g/dL (2.2-4.0); Glomerular Filtration Rate >60 (60-); Glucose, Blood 102 mg/dL (70-99); Magnesium, Blood 1.2 mg/dL (1.6-2.4); Potassium, Blood 4.3 mmol/L (3.5-5.5); Sodium, Blood 135 mmol/L (136-145); Total Protein, Blood 8.3 g/dL (6.4-8.2)
[2021-01-25] MEDS ORDERED: OMEP20ER PO (12:42)
--- NOTE | 2021-01-25 17:30 | NUR ---
SHIFT SUMMARY PATIENT IS ALERT AND ORIENTED X4. PATIENT HAD NO ACUTE EVENTS DURING SHIFT. PATIENT DISCHARGED TO [facility]. VITAL SIGNS REVIEWED.
== END 2021-01-25 17:43 | disposition home or self-care (01) | DRG 432 ==
LOC: ER 16:18 → ERHOLD 16:19 → MEDS 01-24 13:55
PROVIDERS: Emergency Medicine; Internal Medicine; Internal Medicine Gastroenterology; Physician Assistant; Student in an Organized Health Care Education/Training Program; ADMIT Internal Medicine
PROC: 3E02340 Introduction of Influenza Vaccine into Muscle, Percutaneous Approach (ICD-10-PCS; 2021-01-23)
PROC: 0DJ08ZZ Inspection of Upper Intestinal Tract, Via Natural or Artificial Opening Endoscopic (ICD-10-PCS; principal; 2021-01-24 17:15)
DX: K70.30 Alcoholic cirrhosis of liver without ascites (principal); I85.11 Secondary esophageal varices with bleeding; E72.20 Disorder of urea cycle metabolism, unspecified; N17.9 Acute kidney failure, unspecified; Z66 Do not resuscitate; Z20.822 Contact with and (suspected) exposure to COVID-19; Z23 Encounter for immunization; R10.31 Right lower quadrant pain; D50.9 Iron deficiency anemia, unspecified; F10.20 Alcohol dependence, uncomplicated; M25.519 Pain in unspecified shoulder; F41.9 Anxiety disorder, unspecified; I10 Essential (primary) hypertension; F17.210 Nicotine dependence, cigarettes, uncomplicated; Z79.899 Other long term (current) drug therapy; Z91.14 Patient's other noncompliance with medication regimen; Z98.890 Other specified postprocedural states; Z88.8 Allergy status to other drugs, medicaments and biological substances
CPT/HCPCS: 0241U; 36415; 73030; 76705; 80053; 82140; 82607; 82728; 82746; 83540; 83550; 83690; 83735; 85014; 85018; 85025; 90686; 93005; 93010; 96365; 96366; 96367; 96375; 96376; 97161; 97530; 99285-25; A9270; C9113; G0008; G0378; G0480; J2250; J2354; J2405; J2704; J3010; J3411; J3475; J7030; J7050; J7120